=== PATIENT | female | born 1990 | race Asian ===

== ENCOUNTER 2018-07-19 01:57 | Inpatient (IN) | payer OTHER ==
[~2018-07-19] VITALS: Ht 167.6 cm; Wt 59.0 kg
[2018-07-19] VITALS (7 sets, daily range): BP systolic 93–113; BP diastolic 37–62
[2018-07-19 03:45] LABS: BASOPHILS % 0.6 % (0.0-2.0); EOSINOPHILS % 1.8 % (0.0-5.0); HEMATOCRIT. 39.1 % (36.0-48.0); HEMOGLOBIN. 12.9 g/dL (12.0-16.0); LYMPHOCYTES % 23.3 % (20.0-50.0); MEAN CORPUSCULAR HEMOGLOBIN 28.8 pg (28.0-32.0); MEAN CORPUSCULAR VOLUME 87.1 fL (81.0-99.0); MEAN PLATELET VOLUME 8.8 fl (7.4-10.4); MONOCYTES % 7.4 % (2.0-8.0); NEUTROPHILS % 66.9 % (40.0-76.0); PLATELET 217 x1000/uL (130-400); RED BLOOD CELL COUNT 4.49 mill/uL (4.2-5.4); RED CELL DISTRIBUTION WIDTH 13.8 % (11.6-14.6)
[2018-07-19 03:50] LABS: CHLORIDE 111 mEq/L (98-107)
[2018-07-19] MEDS ORDERED: DOCUSATE SODIUM 100MG CAPSULE PO PRN (09:30)
[2018-07-19] MEDS ORDERED: ONDANSETRON HCL 4MG/2ML INJ IV PRN (09:30)
[2018-07-19] MEDS ORDERED: GUAIFENESIN 200MG/10ML SUGAR FREE UDC PO PRN (09:30)
[2018-07-19] MEDS ORDERED: NITROGLYCERIN 0.4MG TABLET SL SL PRN (09:30)
[2018-07-19] MEDS ORDERED: IPRATROPIUM/ALBUTEROL 0.5-3(2.5)MG/3ML NEB INH PRN (09:30)
[2018-07-19] MEDS ORDERED: ACETAMINOPHEN 325MG TABLET PO PRN (09:30)
[2018-07-19] MEDS ORDERED: KETOROLAC 15MG/ML VIAL IV PRN (09:30)
[2018-07-19] MEDS ORDERED: MAGNESIUM/ALUMINUM HYDROXIDE/SIMETHICONE 30ML UDC PO PRN (09:30)
[2018-07-19] MEDS ORDERED: CLONIDINE 0.1MG TABLET PO PRN (09:30)
[2018-07-19] MEDS ORDERED: LORAZEPAM 0.5MG TABLET PO PRN (09:30)
[2018-07-19] MEDS: FAMOTIDINE 20MG TABLET PO SCH ×2 (11:56→21:57)
[2018-07-19] MEDS: SODIUM CHLORIDE 0.9% 1,000 ML IV SCH ×2 (12:34→21:56)
[2018-07-19 15:55] LABS: CREATINE KINASE 71 IU/L (26-192)
[2018-07-19 15:56] LABS: CREATINE KINASE MB FRACTION < 1.0 ng/mL (0.5-3.6)
[2018-07-19 17:41] LABS: CLARITY URINE CLEAR (CLEAR); COLOR URINE YELLOW (YELLOW); KETONES URINE NEGATIVE (NEGATIVE); LEUKOCYTE ESTERASE URINE NEGATIVE (NEGATIVE); NITRITE URINE NEGATIVE (NEGATIVE); OCCULT BLOOD URINE NEGATIVE (NEGATIVE); PH URINE 5.5 (4.5-8.0); PROTEIN URINE NEGATIVE (NEGATIVE); SPECIFIC GRAVITY URINE 1.019 (1.005-1.030); UROBILINOGEN URINE 0.2 E.U./dL (0.2-1.0)
[2018-07-19 17:56] LABS: *AMPHETAMINES SCREEN URINE NEGATIVE (NEGATIVE); *BARBITURATES SCREEN URINE NEGATIVE (NEGATIVE); *BENZODIAZEPINES SCREEN URINE NEGATIVE (NEGATIVE); *COCAINE SCREEN URINE NEGATIVE (NEGATIVE)
[2018-07-19 17:57] LABS: CANNABINOID URINE SCREEN NEGATIVE (NEGATIVE); METHADONE URINE SCREEN NEGATIVE (NEGATIVE); OPIATES URINE SCREEN NEGATIVE (NEGATIVE); PHENCYCLIDINE URINE SCREEN NEGATIVE (NEGATIVE)
[2018-07-19] MEDS ORDERED: ZOLPIDEM TARTRATE 5MG TABLET PO PRN (21:00)
[2018-07-20] VITALS: BP 96/42
[2018-07-20 00:36] LABS: CREATINE KINASE 72 IU/L (26-192)
[2018-07-20 00:39] LABS: CREATINE KINASE MB FRACTION < 1.0 ng/mL (0.5-3.6)
[2018-07-20 04:00] VITALS: BP 95/29
[2018-07-20 08:00] VITALS: BP 95/49
[2018-07-20] MEDS: FAMOTIDINE 20MG TABLET PO SCH (09:00)
[2018-07-20 09:46] VITALS: BP 95/49
== END 2018-07-20 11:10 | disposition home or self-care (01) | DRG 880 ==
LOC: ER 01:57 → 8WST 05:32 → EDBEDREQ 05:42 → EDBEDREQTM 05:42 → ENRESERV 07:08
PROVIDERS: ADMIT Internal Medicine; ATTEND Internal Medicine
DX: F41.9 Anxiety disorder, unspecified (principal); F17.210 Nicotine dependence, cigarettes, uncomplicated; E83.51 Hypocalcemia
CPT/HCPCS: 36415; 71045; 80061; 80305; 82550; 82553; 83036; 83735; 84443; 84484; 93005; 99285; J7030